=== PATIENT | female | born 1995 | race African-American/Black ===

== ENCOUNTER 2016-11-26 12:55 | Emergency (ER) | payer MEDICAID ==
[~2016-11-26] VITALS: Ht 165.1 cm; Wt 60.0 kg
[~2016-11-26 12:55] MED LIST: PREN-88 PO
[2016-11-26 13:35] VITALS: BP 126/70
[2016-11-26 15:35] LABS: CLARITY URINE CLEAR (CLEAR); COLOR URINE YELLOW (YELLOW); GLUCOSE URINE NEGATIVE (NEGATIVE); KETONES URINE NEGATIVE (NEGATIVE); LEUKOCYTE ESTERASE URINE NEGATIVE (NEGATIVE); NITRITE URINE NEGATIVE (NEGATIVE); OCCULT BLOOD URINE NEGATIVE (NEGATIVE); PROTEIN URINE NEGATIVE (NEGATIVE); SPECIFIC GRAVITY URINE 1.013 (1.005-1.030); UROBILINOGEN URINE 0.2 E.U./dL (0.2-1.0)
== END 2016-11-26 15:06 | disposition left against medical advice (07) ==
LOC: ER 13:39
DX: R10.9 Unspecified abdominal pain (principal); Z98.890 Other specified postprocedural states
CPT/HCPCS: 81003; 81025; 99284

== ENCOUNTER 2020-07-11 17:56 | Emergency (ER) | payer MEDICAID, OTHER ==
[~2020-07-11] VITALS: Ht 160 cm; Wt 54.0 kg
[2020-07-11 18:41] LABS: BASOPHILS % 0.5 % (0.0-2.0); EOSINOPHILS % 0.6 % (0.0-5.0); HEMATOCRIT. 43.3 % (36.0-48.0); HEMOGLOBIN. 14.3 g/dL (12.0-16.0); LYMPHOCYTES % 21.5 % (20.0-50.0); MEAN CORPUSCULAR HEMOGLOBIN 26.4 pg (28.0-32.0); MEAN CORPUSCULAR VOLUME 80.1 fL (81.0-99.0); MEAN PLATELET VOLUME 9.2 fl (7.4-10.4); MONOCYTES % 7.3 % (2.0-8.0); NEUTROPHILS % 70.1 % (40.0-76.0); PLATELET 198 x1000/uL (130-400); RED BLOOD CELL COUNT 5.41 mill/uL (4.2-5.4); RED CELL DISTRIBUTION WIDTH 15.9 % (11.6-14.6)
[2020-07-11 18:50] LABS: CHLORIDE 109 mEq/L (98-107)
[2020-07-11] MEDS ORDERED: ACETAMINOPHEN 325MG TABLET PO ONE (19:45)
[2020-07-11] MEDS ORDERED: BACITRACIN ZINC OINT UDPKT TOP ONE (20:00)
[2020-07-11 21:16] VITALS: BP 156/82
== END 2020-07-11 21:17 | disposition home or self-care (01) ==
LOC: ER 17:56
DX: S09.8XXA Other specified injuries of head, initial encounter (principal); V49.49XA Driver injured in collision with other motor vehicles in traffic accident, initial encounter; Y93.89 Activity, other specified; Y92.89 Other specified places as the place of occurrence of the external cause; Y99.8 Other external cause status; Z98.890 Other specified postprocedural states
CPT/HCPCS: 12011; 36415; 71045; 73130; 80053; 81025; 84484; 85025; 93005; 99285

== ENCOUNTER 2022-10-11 09:20 | Emergency (ER) | payer MEDICAID, OTHER ==
[~2022-10-11] VITALS: Ht 165.1 cm; Wt 75.0 kg
[2022-10-11 09:30] VITALS: BP 116/75
[2022-10-11] MEDS ORDERED: IBUPROFEN 600MG TABLET PO ONE (09:30)
[2022-10-11] MEDS ORDERED: IBUPROFEN 600MG TABLET PO NR (12:15)
[2022-10-11] MEDS ORDERED: IBUP-2029 MT (12:56)
== END 2022-10-11 13:04 | disposition home or self-care (01) ==
LOC: ER 09:37
DX: J02.9 Acute pharyngitis, unspecified (principal); Z98.890 Other specified postprocedural states
CPT/HCPCS: 87070; 87430; 99283

== ENCOUNTER 2023-12-26 11:15 | Emergency (ER) | payer MEDICAID ==
[~2023-12-26] VITALS: Ht 160 cm; Wt 52.3 kg
[~2023-12-26 11:15] MED LIST changes: +IBUP-2029 MT
[2023-12-26 11:41] VITALS: BP 126/76; PULSE 80; RESP 18; TEMP 98.9; O2SAT 98
== END 2023-12-26 12:51 | disposition home or self-care (01) ==
LOC: ER 12:44
DX: R68.89 Other general symptoms and signs (principal)
CPT/HCPCS: 81025; 99282